=== PATIENT | female | born 1990 | race Caucasian/White ===

== ENCOUNTER 2017-09-24 09:52 | Day surgery (SDC) | payer MEDICAID ==
[2014-03-27 06:40] VITALS: BMI 23.2
[2017-09-24 10:41] LABS: BASO # 0.1 K/uL (0.0-0.2); BASO % 0.7 % (0.0-2.0); EOS # 0.2 K/uL (0.0-0.7); EOS % 2.4 % (0.0-4.0); HEMOGLOBIN 13.4 g/dL (11.0-16.0); LYMPH # 2.5 K/uL (1.0-4.3); LYMPH % 26.8 % (20.0-40.0); MEAN CELL VOLUME 87.8 fL (81.0-99.0); MEAN CORPUSCULAR HEMOGLOBIN 29.5 pg (27.0-31.0); MEAN CORPUSCULAR HGB CONC 33.6 g/dL (33.0-37.0); MEAN PLATELET VOLUME 9.1 fL (7.2-11.7); MONO # 0.9 K/uL (0.0-0.8); MONO % 9.6 % (0.0-10.0); NEUT # 5.6 K/uL (1.8-7.0); NEUT % 60.5 % (50.0-75.0); NRBC % 0.1 % (0.0-2.0); RBC 4.56 Mil/uL (3.80-5.20); RED CELL DISTRIBUTION WIDTH 13.7 % (11.5-14.5); WHITE BLOOD COUNT 9.2 K/uL (4.8-10.8)
[2017-09-24] MEDS ORDERED: Bupivacaine 0.5% Inj(30mL) IJ ONE (11:14)
[2017-09-24] MEDS ORDERED: Lidocaine Hydrochloride 0 ML INJ ONE (11:22)
[2017-09-24] MEDS ORDERED: Bupivacaine 0.25% 20 ML INJ IJ ONE (11:24)
[2017-09-24] MEDS ORDERED: Propofol 10 mg/ml Inj (20 ML) ONE (11:44)
[2017-09-24] MEDS ORDERED: Midazolam 2 MG/2 ML VIAL ONE (11:44)
[2017-09-24] MEDS: ceFAZolin 1 gm FROZEN Premix 1 GM/50 ML ML IVPB ONE ×2 (11:45→11:55)
[2017-09-24] MEDS ORDERED: HYDROmorphone 0.5 mg/0.5 ml ISec IVP PRN (12:42)
[2017-09-24] MEDS ORDERED: Oxycodone/Acetaminophen 5/325 mg Tab PO PRN (12:44)
--- NOTE | 2017-09-24 12:51 | PCM.SURG1 ---
Surgeon's Initial Post Op Note - Surgeon's Notes Surgeon: Dr. Aldrich Mma Fighter: Dr. Hancock PGY3 Type of Anesthesia: General LMA Pre-Operative Diagnosis: R breast mass Operative Findings: see operative report Post-Operative Diagnosis: see operative report Operation Performed: Excision of right breast mass Specimen/Specimens Removed: Right breast mass Estimated Blood Loss: EBL {In ML}: 10 Blood Products Given: N/A Drains Used: No Drains Post-Op Condition: Good Date of Surgery/Procedure: 09/24/17 Time of Surgery/Procedure: 11:30
[2017-09-24] MEDS ORDERED: HYDROmorphone 0.5 mg/0.5 ml ISec IVP STA (15:00)
[2017-09-24 17:25] VITALS: BP 97/56; PULSE 84; RESP 16; TEMP 97.5; O2SAT 97
--- NOTE | 2017-09-27 02:22 | OP ---
PROCEDURE DATE: 09/24/2017 SURGEON: Feliz Aldrich MD. BILLING COORDINATOR: Dr. Hancock. TYPE OF ANESTHESIA: General LMA. PREOPERATIVE DIAGNOSIS: Mass, right breast. POSTOPERATIVE DIAGNOSIS: Mass, right breast. PROCEDURE: Excision mass, right breast. DESCRIPTION OF OPERATION: With the patient in the supine position under adequate general anesthesia, the right breast was prepped and draped in the usual sterile manner. The patient was noted to have a hard mass in the lower outer quadrant of the right breast, short distance outside the areolar margin, which was movable and a quadrant incision was made along the edge of the areolar and taken down through the full thickness of skin. Skin flap was raised peripherally allowing the area of the mass to be delivered into the incision and normal breast tissue was divided primarily using cautery distal to the mass and superiorly and inferiorly, which allowed it to be grasped with a tenaculum and delivered into the wound. The mass appeared to arrived from fibrous breast tissue and the surrounding tissue was also divided using the cautery circumferentially with a wide margin around the grossly palpable mass. The mass was removed and sent for pathologic examination. The operative site was examined for hemostasis. Small bleeders were cauterized and closure was performed with running subcuticular suture of 4-0 Monocryl and Steri-Strips. Dry sterile dressing was applied. The patient tolerated the procedure well and transferred to recovery room in stable condition. Estimated blood loss for the procedure was 10 mL. Feliz Aldrich MD
== END 2017-09-24 17:25 | disposition home or self-care (01) ==
LOC: C.SDS 09:52
PROVIDERS: ATTEND Specialist
DX: N63.13 Unspecified lump in the right breast, lower outer quadrant (principal); E55.9 Vitamin D deficiency, unspecified; F17.210 Nicotine dependence, cigarettes, uncomplicated
CPT/HCPCS: 19120; 36415; 84703; 85025; 88307; J0690; J1100; J1170; J2001; J2250; J2405; J2704; J3010